=== PATIENT | male | born 1955 | race Caucasian/White ===

== ENCOUNTER 2025-05-10 14:05 | Emergency (ER) | payer MEDICARE, OTHER, SELFPAY ==
[2025-05-10 14:16] VITALS: BP 103/70; PULSE 75; RESP 16; TEMP 36.8; O2SAT 99
--- NOTE | 2025-05-10 14:29 | ED_ITS ---
HPI - Skin/Abscess/Foreign Bdy General Chief complaint: Skin/Abscess/Foreign Body Stated complaint: Rash Time Seen by Provider: 05/10/25 14:23 Source: patient and RN notes reviewed Mode of arrival: ambulatory Limitations: no limitations History of Present Illness HPI narrative: Patient presents today complaining of rash to the nasolabial folds x3 weeks. He has been trying TALHA and lotion without improvement. Prior to onset, patient had trimmed his goatee with an electric kalee, which he did not clean prior to using it. History of diabetes Related Data Home Medications ?Medication ?Instructions ?Recorded ?Confirmed ?Last Taken ?Type fenofibrate nanocrystallized 48 mg 48 mg PO DAILY 03/11/25 04/08/25 Unknown History tablet finerenone 20 mg tablet (Kerendia) 20 mg PO DAILY 03/11/25 04/08/25 Unknown History metoprolol tartrate 25 mg tablet 25 mg PO BID 03/11/25 04/08/25 Unknown History tamsulosin 0.4 mg capsule 0.8 mg PO QHS 03/11/25 04/08/25 Unknown History ticagrelor 90 mg tablet 90 mg PO Q12H 03/11/25 04/08/25 Unknown History tramadol 50 mg tablet 50 mg PO Q6H PRN 03/11/25 04/08/25 Unknown History mecobalamin (vitamin B12) 1,000 1,000 mcg sublingual QHS 03/17/25 04/08/25 Unknown History mcg disintegrating tablet,sublingual rosuvastatin 20 mg tablet 20 mg PO DAILY 03/17/25 04/08/25 Unknown History Allergies Allergy/AdvReac Type Severity Reaction Status Date / Time No Known Allergies Allergy Verified 05/10/25 14:13 [facility] Past Medical History Medical History Follow up Prostate cancer screening RLQ abdominal pain DM type 2 (diabetes mellitus, type 2) Diastasis recti Hypersomnolence Pedal edema Elevated PSA Peripheral neuropathy Mostly R foot Varicose veins of both lower extremities Encounter to establish care DJD (degenerative joint disease), multiple sites CAD (coronary artery disease) History of CVA in adulthood 2023 ASHD (arteriosclerotic heart disease) Hyperlipidemia Benign essential hypertension On terminal superintendent drug therapy History of rib fracture Surgical History Surgical History History of coronary artery stent placement Hx of cholecystectomy Family History Family History Mother CHF (congestive heart failure) Rheumatoid arthritis Father Myocardial infarction Diabetes mellitus Hypertension PVD (peripheral vascular disease) Sibling Alive and well Sibling Bowel obstruction Sibling Cirrhosis, non-alcoholic Fatty liver Social History Social History Smoking status: Never smoker Second hand tobacco smoke exposure: No Alcohol intake: former Substance use: never Do You Feel Safe in your Home?: Yes Lack of Transportation: No Lack of Food: Never True Current Housing: I Have Housing Concerned About Future Housing: No Difficulty Paying Gas/Electric Bills: No Difficulty Paying for Meds: No Currently Unemployed: No Living arrangements: alone Occupation/Education: retired Gender identity (if verbalized by the patient): Male Sexual Orientation (if Verbalized by the Patient): Straight or Heterosexual Agree to blood products: Yes Comments At time of signature, I have reviewed and agree with nursing past medical, surgical, social and family history unless otherwise noted. Please see nursing chart for further information. There is no relevant family history pertinent to the presenting complaint Exam Narrative: GENERAL: Well-appearing, well-nourished, and in no acute distress. HEAD: Normocephalic, atraumatic. EYES: EOMI. No redness or drainage. Conjunctivae normal. ENT: Mucous membranes pink and moist. NECK: Normal AROM. CHEST: No respiratory distress. EXTREMITIES: Normal range of motion. No edema. SKIN: Warm, dry. Capillary refill normal. Normal skin turgor. Erythematous honey crusting rash to the bilateral nasal labial folds, consistent with impetigo NEURO: No focal deficits. Alert and oriented x3. Gait steady. PSYCH: Normal affect. No signs of depression or anxiety. Course Course Level of Care: Express Care Visit Vital Signs Vital signs: Vital Signs Temperature 98.2 F 05/10/25 14:16 Pulse Rate 75 05/10/25 14:16 Respiratory Rate 16 05/10/25 14:16 Blood Pressure 103/70 05/10/25 14:16 Pulse Oximetry 99 05/10/25 14:16 Temperature 98.2 F 05/10/25 14:16 Pulse Rate 75 05/10/25 14:16 Respiratory Rate 16 05/10/25 14:16 Blood Pressure 103/70 05/10/25 14:16 Pulse Oximetry 99 05/10/25 14:16 Reviewed MDM - Skin/Abscess/Foreign Bdy MDM Narrative Medical decision making narrative: 69-year-old male patient with history of diabetes presents today with a red rash to the bilateral nasal labial folds x3 weeks after trimming within electric kalee. OTC treatment without improvement. Physical exam shows erythema and honey crusting to affected area consistent with a impetigo. Prescription for mupirocin sent to pharmacy. Anticipatory guidance given. Differential Diagnosis Differential diagnosis: Likely abscess of skin or subcutaneous tissue, dermatophytosis, cellulitis, eczema, impetigo and contact dermatitis Critical Care Time Critical Care Time Critical Care Time: No Discharge Plan Discharge Clinical Impression: Impetigo Patient Disposition: Home Condition: Stable Instructions: Impetigo (ED) Additional Instructions: Please use the mupirocin as prescribed. Wash daily with soap and water. Follow-up with your PCP next week if symptoms are not improving. Patient Language: Omani Prescriptions: New mupirocin 2 % ointment 1 applic topical BID 7 Days Qty: 22 0RF No Action ticagrelor 90 mg tablet 90 mg PO Q12H Kerendia 20 mg tablet 20 mg PO DAILY fenofibrate nanocrystallized 48 mg tablet 48 mg PO DAILY tramadol 50 mg tablet 50 mg PO Q6H PRN metoprolol tartrate 25 mg tablet 25 mg PO BID tamsulosin 0.4 mg capsule 0.8 mg PO QHS Synjardy XR 12.5-1,000 mg tablet, IR - ER, biphasic 24hr 1 tablet PO DAILY Qty: 90 1RF Rx Instructions: Please D/C the Metformin and Bydureon. Thank you mecobalamin (vitamin B12) 1,000 mcg tablet,disintegrating 1,000 mcg sublingual QHS Rx Instructions: place tablet under tongue and allow to dissolve for at least30 secs before swallowing rosuvastatin 20 mg tablet 20 mg PO DAILY lisinopril 5 mg tablet 5 mg PO DAILY Qty: 90 1RF pregabalin 75 mg capsule 75 mg PO BID Qty: 180 0RF Follow-up/Referrals: PHYSICIAN,JOURNEYMAN MECHANIC [Primary Care Provider] - Time of Disposition: 14:36
== END 2025-05-10 14:40 | disposition home or self-care (01) ==
PROVIDERS: Emergency Provider Nurse Practitioner
DX: L01.00 Impetigo, unspecified (principal); E11.42 Type 2 diabetes mellitus with diabetic polyneuropathy; Z79.84 Long term (current) use of oral hypoglycemic drugs; I83.93 Asymptomatic varicose veins of bilateral lower extremities; M15.9 Polyosteoarthritis, unspecified; I25.10 Atherosclerotic heart disease of native coronary artery without angina pectoris; Z86.73 Personal history of transient ischemic attack (TIA), and cerebral infarction without residual deficits; E78.5 Hyperlipidemia, unspecified; I10 Essential (primary) hypertension; Z95.5 Presence of coronary angioplasty implant and graft
CPT/HCPCS: 99213; G0463

== ENCOUNTER 2025-09-08 08:12 | Outpatient (CLI) | payer OTHER, MEDICARE, SELFPAY ==
--- NOTE | ~2025-09-08 | XR_ITS ---
EXAMINATION: XR hand LT min 3V, 09/08/2025 8:20 BIT AND SHANK DEPARTMENT SUPERVISOR HISTORY: M79.643 - Pain in unspecified hand COMPARISON: No comparisons available. Findings: No acute fracture or malalignment. Severe degenerative changes of the first metacarpal carpal joint and small erosions. Moderate degenerative changes of the third metacarpal phalangeal joint and the distal interphalangeal joints. Soft tissues unremarkable. Impression: No acute fracture or malalignment. Reviewed, dictated and finalized at location P. AND SHANK DEPARTMENT SUPERVISOR Impression: No acute fracture or malalignment.
--- NOTE | ~2025-09-08 | XR_ITS ---
EXAMINATION: XR knee LT min 4V, 09/08/2025 8:20 MARKET DEVELOPMENT DIRECTOR HISTORY: M25.561 - Pain in right knee COMPARISON: No comparisons available. Findings: No acute fracture or malalignment. Moderate to severe tricompartmental degenerative changes with small effusion. Soft tissues unremarkable. Impression: No acute fracture or malalignment. Reviewed, dictated and finalized at location P. ET DEVELOPMENT DIRECTOR Impression: No acute fracture or malalignment.
--- NOTE | ~2025-09-08 | XR_ITS ---
EXAMINATION: XR hand RT min 3V, 09/08/2025 8:20 MILK HANDLER HISTORY: M79.643 - Pain in unspecified hand COMPARISON: No comparisons available. Findings: No acute fracture or malalignment. Severe degenerative changes of the first metacarpal carpal joint with moderate to severe degenerative changes of the distal interphalangeal joints with small erosions suspected. Soft tissues unremarkable. Impression: No acute fracture or malalignment. Reviewed, dictated and finalized at location P. HANDLER Impression: No acute fracture or malalignment.
--- NOTE | ~2025-09-08 | XR_ITS ---
EXAMINATION: XR knee RT min 4V, 09/08/2025 8:20 RAGS LABORER HISTORY: M25.561 - Pain in right knee COMPARISON: No comparisons available. Findings: No acute fracture or malalignment. Moderate to severe tricompartmental degenerative changes with small effusion Soft tissues unremarkable. Impression: No acute fracture or malalignment. Reviewed, dictated and finalized at location P. LABORER Impression: No acute fracture or malalignment.
== END 2025-09-08 08:13 | disposition home or self-care (01) ==
PROVIDERS: PCP Internal Medicine; Visit Provider Internal Medicine
DX: M25.561 Pain in right knee (principal); G89.29 Other chronic pain; M23.91 Unspecified internal derangement of right knee; M79.643 Pain in unspecified hand; M79.89 Other specified soft tissue disorders
CPT/HCPCS: 73130; 73564

== ENCOUNTER 2025-09-23 14:55 | Outpatient (CLI) | payer OTHER, MEDICARE, SELFPAY ==
--- NOTE | ~2025-09-23 | CT_ITS ---
EXAMINATION: CT abdomen pelvis wo/w con DATE: 09/23/2025 16:01 INDICATION: Hematuria TECHNIQUE: Computed tomography (CT) of the abdomen and pelvis was performed without intravenous contrast. CT of the abdomen and pelvis was then performed with a total of 130 mL Omnipaque-350 intravenous contrast using a double-bolus technique for simultaneous opacification of the renal parenchyma and renal collecting system. Automated exposure control and iterative reconstruction technique were employed. The dose-length product was 1776.13 mGy-cm. COMPARISON: None FINDINGS: Minimal dependent atelectasis at the lung bases and dependent lower lobes. Heart size is normal. Atherosclerotic coronary artery calcification. No pericardial or pleural effusion. Small sliding-type hiatal hernia. Cholecystectomy clips the gallbladder fossa. Liver, spleen and bilateral adrenal glands are normal. A few splenic tiny dystrophic calcifications in the pancreas likely sequela of chronic pancreatitis. Subcentimeter low-attenuation cyst in the right kidney. 2 mm calcification and a small region of cortical scarring in the left kidney consistent with sequela of prior infection or infarction. Larger 1.3 cm nonobstructing stone at the upper pole calyx of the left kidney. No urolithiasis in the right kidney or along either ureter. The bilateral ureters and renal collecting systems are opacified in their entirety on the post contrast images with no evident urothelial irregularities. No hydronephrosis. Moderate diverticulosis with sigmoid and descending colon predominance without adjacent from trace stranding to suggest diverticulitis. Small bowel and appendix are normal. Bladder is normal. Small bilateral fat-containing indirect inguinal hernias. No free intraperitoneal gas or fluid. No pathologically enlarged abdominal or pelvic lymphadenopathy. Stigmata of partial tears of the bilateral gluteus medius medius tendons. Secondary fatty atrophy and proximal retraction of the myotendinous junctions. Severe lumbar and moderate lower thoracic spondylosis. IMPRESSION: 1. Nonobstructing left nephrolithiasis. No acute intra-abdominal/pelvic process. 2. Small sliding-type hiatal hernia. 3. Small bilateral fat-containing inguinal hernias. Reviewed, dictated and finalized at location A. TRUCTION DRIVER IMPRESSION: 1. Nonobstructing left nephrolithiasis. No acute intra-abdominal/pelvic process . 2. Small sliding-type hiatal hernia. 3. Small bilateral fat-containing inguinal hernias.
== END 2025-09-23 14:56 | disposition home or self-care (01) ==
PROVIDERS: PCP Internal Medicine; Visit Provider Internal Medicine
DX: R31.9 Hematuria, unspecified (principal); N20.0 Calculus of kidney; K44.9 Diaphragmatic hernia without obstruction or gangrene; K40.20 Bilateral inguinal hernia, without obstruction or gangrene, not specified as recurrent
CPT/HCPCS: 74178; Q9967